=== PATIENT | female | born 1995 | race Caucasian/White ===

== ENCOUNTER 2020-06-01 13:41 | Emergency (ER) | payer MEDICAID ==
[~2020-06-01] VITALS: Ht 172.7 cm; Wt 123.4 kg
[2020-06-01] MEDS ORDERED: TROKENDI XR50 MG PO (14:05)
[2020-06-01] MEDS ORDERED: TROKENDI XR200 MG PO (14:05)
[2020-06-01] MEDS ORDERED: LAMOTRIGINE200 MG PO (14:06)
[2020-06-01] MEDS ORDERED: PRENATAL TABLE1 EAC1 PO (14:07)
[2020-06-01] MEDS ORDERED: LAMICTAL ODT50 MG PO (14:07)
[2020-06-01] MEDS ORDERED: OXYCODONE HCL5 MG PO (15:46)
== END 2020-06-01 16:06 | disposition home or self-care (01) ==
LOC: ED 13:41
DX: N89.8 Other specified noninflammatory disorders of vagina (principal); R56.9 Unspecified convulsions; Z88.0 Allergy status to penicillin; Z88.8 Allergy status to other drugs, medicaments and biological substances; Z79.899 Other long term (current) drug therapy
CPT/HCPCS: 81001; 84703; 87529; 96374; 96375; 99284-25; J2060; J2405

== ENCOUNTER 2020-07-17 11:47 | Emergency (ER) | payer OTHER ==
[~2020-07-17] VITALS: Ht 172.7 cm; Wt 123.4 kg
[~2020-07-17 11:47] MED LIST: LAMICTAL ODT50 MG PO; LAMOTRIGINE200 MG PO; OXYCODONE HCL5 MG PO; PRENATAL TABLE1 EAC1 PO; TOPAMAX100 MG PO; TOPAMAX25 MG PO
[2020-07-17] MEDS ORDERED: LAMICTAL ODT50 MG (11:58)
[2020-07-17] MEDS ORDERED: LAMOTRIGINE200 MG PO (11:58)
== END 2020-07-17 14:18 | disposition home or self-care (01) ==
LOC: ED 11:47
DX: G40.909 Epilepsy, unspecified, not intractable, without status epilepticus (principal); S83.92XA Sprain of unspecified site of left knee, initial encounter; Z88.8 Allergy status to other drugs, medicaments and biological substances; Z88.0 Allergy status to penicillin; V48.6XXA Car passenger injured in noncollision transport accident in traffic accident, initial encounter; Z79.899 Other long term (current) drug therapy
CPT/HCPCS: 73560; 80053; 85025; 99284-25; A9270

== ENCOUNTER 2020-08-13 14:06 | Emergency (ER) | payer OTHER ==
[~2020-08-13] VITALS: Ht 172.7 cm; Wt 123.4 kg
[~2020-08-13 14:06] MED LIST changes: +LAMICTAL ODT50 MG
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
[2020-08-13] MEDS ORDERED: PROMETHAZINE HC25 M1 PO (17:00)
== END 2020-08-13 17:26 | disposition home or self-care (01) ==
LOC: ED 14:06
DX: O99.351 Diseases of the nervous system complicating pregnancy, first trimester (principal); G40.909 Epilepsy, unspecified, not intractable, without status epilepticus; Z3A.08 8 weeks gestation of pregnancy; Z88.0 Allergy status to penicillin; Z88.8 Allergy status to other drugs, medicaments and biological substances; Z79.899 Other long term (current) drug therapy
CPT/HCPCS: 80053; 84703; 85025; 96374; 99284-25; J2550; J7030

== ENCOUNTER 2020-10-06 21:34 | Emergency (ER) | payer OTHER ==
[~2020-10-06] VITALS: Ht 172.7 cm; Wt 125.2 kg
[~2020-10-06 21:34] MED LIST changes: +PROMETHAZINE HC25 M1 PO
== END 2020-10-07 06:23 | disposition home or self-care (01) ==
LOC: ED 21:34
DX: D84.1 Defects in the complement system (principal); G40.909 Epilepsy, unspecified, not intractable, without status epilepticus; Z88.8 Allergy status to other drugs, medicaments and biological substances; Z88.0 Allergy status to penicillin; Z79.899 Other long term (current) drug therapy
CPT/HCPCS: 36430; 74177; 80053; 81001; 83690; 83735; 84703; 85025; 86900; 86901; 86927; 96361; 99285-25; J1170; J2405; J2550; J7030; J7121; Q9967